=== PATIENT | male | born 1990 | race Caucasian/White ===

== ENCOUNTER 2019-06-18 01:04 | Emergency (ER) | payer OTHER ==
[~2019-06-18] VITALS: Ht 200.7 cm; Wt 104.3 kg
[2019-06-18] MEDS ORDERED: CYCLOBENZAPRINE5 MG PO (03:36)
[2019-06-18] MEDS ORDERED: IBUPROFEN 800800 MG PO (03:36)
[2019-06-18] MEDS ORDERED: HYDROCODON-ACE1 EAC7 PO (03:36)
[2019-06-18 03:51] VITALS: BP 140/78
== END 2019-06-18 03:52 | disposition home or self-care (01) ==
LOC: M.ERS 01:04
DX: S13.4XXA Sprain of ligaments of cervical spine, initial encounter (principal); R51 Headache; F17.210 Nicotine dependence, cigarettes, uncomplicated; V79.49XA Driver of bus injured in collision with other motor vehicles in traffic accident, initial encounter; Y93.89 Activity, other specified; Y92.89 Other specified places as the place of occurrence of the external cause; Y99.8 Other external cause status